=== PATIENT | female | born 1940 | race Caucasian/White ===

== ENCOUNTER 2020-07-10 13:01 | Emergency (ER) | payer MEDICARE, BC ==
[~2020-07-10] VITALS: Ht 167.6 cm; Wt 68.0 kg
[~2020-07-10 13:01] MED LIST: ADVIL100 M2 PO; ASPIR 8181 M1 PO; ATORVASTATIN CA20 MG PO; AUGMENTIN 875875 MG PO; CEFDINIR300 MG; CIPRO500 MG PO; LIPITOR10 MG PO; MACROBID 100 M100 M2 PO; MELATONIN3 MG PO; METOPROLOL SUCC50 MG PO; RYTHMOL 150MG150 M1 PO; SEROQUEL 25 MG25 M1 PO; SEROQUEL 50 MG50 MG PO; TOPROL XL25 MG PO; VITAMIN B-12500 MCG PO; XARELTO20 MG PO; ZOFRAN ODT4 MG PO
[2020-07-10 13:39] LABS: ABSOLUTE BASOPHILS 0.1 thou/uL (0.0-0.2); ABSOLUTE EOSINOPHILS 0.1 thou/uL (0.0-0.7); ABSOLUTE LYMPHOCYTES 1.3 thou/uL (0.8-5.3); ABSOLUTE MONOCYTES 0.7 thou/uL (0.0-1.2); ABSOLUTE NEUTROPHILS 5.4 thou/uL (1.6-8.1); BASOPHILS 0.8 %; HEMATOCRIT 35.8 % (37.0-47.0); HEMOGLOBIN 11.9 gm/dL (12.0-15.0); LYMPHOCYTES 17.2 %; MCH 30.4 pg (26.0-34.0); MCHC 33.2 g/dL (28.0-37.0); MCV 91.8 fL (80.0-100.0); MPV 9.2 fl. (7.2-11.1); NUCLEATED RBCS 0 /100WBC; PLATELET COUNT* 219 thou/uL (150-400); RBC 3.91 mil/uL (4.20-5.00); RDW-CV 14.5 % (10.5-14.5); WBC 7.5 thou/uL (4.0-11.0)
[2020-07-10 13:53] LABS: APTT 37.9 Seconds (25.0-31.3); INR 1.2; PROTIME 12.9 Seconds (9.20-11.50)
[2020-07-10] MEDS ORDERED: AMOXICILLIN 50500 MG PO (14:25)
[2020-07-10] MEDS ORDERED: ZOFRAN ODT4 MG PO (14:29)
[2020-07-10 14:41] VITALS: BP 154/77
== END 2020-07-10 14:42 | disposition home or self-care (01) ==
LOC: M.ERS 13:01
PROVIDERS: Nurse Practitioner Family
DX: J98.8 Other specified respiratory disorders (principal); R04.0 Epistaxis; Z20.822 Contact with and (suspected) exposure to COVID-19; I10 Essential (primary) hypertension; G89.29 Other chronic pain; E78.5 Hyperlipidemia, unspecified; Z88.2 Allergy status to sulfonamides; Z90.710 Acquired absence of both cervix and uterus; Z87.440 Personal history of urinary (tract) infections; Z86.73 Personal history of transient ischemic attack (TIA), and cerebral infarction without residual deficits

== ENCOUNTER → 2020-10-05 | Outpatient (CLI) | payer MEDICARE, BC ==
[~2020-10-05] MED LIST changes: +AMOXICILLIN 50500 MG PO
--- NOTE | 2020-10-06 09:17 | NUR ---
I have reviewed the documentation by HECTOR THOMPSON from 10/05/20 to 10/06/20 and I concur with it. TERI SKAGGS
== END ==
LOC: M.RAD 10:49
PROVIDERS: ATTEND Internal Medicine Critical Care Medicine
DX: E87.79 Other fluid overload (principal); R91.8 Other nonspecific abnormal finding of lung field; R06.02 Shortness of breath; R05 Cough

== ENCOUNTER → 2020-10-11 | Outpatient (CLI) | payer MEDICARE, BC ==
--- NOTE | 2020-10-11 15:09 | 2DMMODE ---
[place] [address] 2 D/M-MODE ECHOCARDIOGRAM Name: ASUNCION FERNANDES Room: [facility]#: [id number] Admission: 10/11/20 Attend Phys: Christophe Mckeon MD Discharge: Date of : 38 Date of Service: 10/11/20 1508 Report #: [id number] THIS REPORT FOR: cc: Taya Parrish Maggie M. DO Blick, David R. MD [facility] ~ APPROVED REPORT Study performed: 10/11/2020 13:24:25 EXAM: Comprehensive 2D, Doppler, and color-flow Echocardiogram Patient Location: Out-Patient BSA: 1.77 HR: 87 bpm BP: 132/82 mmHg Other Information Study Quality: Excellent Indications Dyspnea 2D Dimensions IVSd: 7.78 (7-11mm) LVOT Diam: 18.37 (18-24mm) LVDd: 30.57 mm PWd: 8.57 (7-11mm) Ascending Ao: 28.09 (22-36mm) LVDs: 24.65 (25-40mm) Aortic Root: 27.00 mm Volumes Left Atrial Volume (Systole) LA ESV Index: 23.50 mL/m2 Aortic Valve AoV Peak Flakito.: 0.75 m/s AO Peak Gr.: 2.22 mmHg LVOT Max P.77 mmHg AO Mean Gr.: 1.15 mmHg LVOT Mean P.86 mmHg LVOT Max V: 0.66 m/s AO V2 VTI: 10.77 cm LVOT Mean V: 0.43 m/s PRANEETH (VTI): 3.03 cm2 LVOT V1 VTI: 12.32 cm Mitral Valve MV Decel. Time: 175.57 [place] [address] 2 D/M-MODE ECHOCARDIOGRAM Name: ASUNCION FERNANDES Room: [facility]#: [id number] Admission: 10/11/20 Attend Phys: Christophe Mckeon MD Discharge: Date of : 38 Date of Service: 10/11/20 1508 Report #: [id number] MV E Max Flakito.: 0.27 m/s MV PHT: 50.91 ms MVA (PHT): 4.32 cm2 TDI E/Lateral E': 1.69 E/Medial E': 1.80 Medial E' Flakito.: 0.15 m/s Lateral E' Flakito.: 0.16 m/s Pulmonary Valve PV Peak Flakito.: 0.73 m/s PV Peak Gr.: 2.15 mmHg Tricuspid Valve RAP Estimate: 5.00 mmHg TR Peak Gr.: 28.48 mmHg RVSP: 33.48 mmHg PA Pressure: 33.48 mmHg Left Ventricle The left ventricle is normal size. There is normal LV segmental wall motion. There is normal left ventricular wall thickness. Left ventricular systolic function is normal. The left ventricular ejection fraction is within the normal range. LVEF is 60-65%. This study is not technically sufficient to allow evaluation of the LV diastolic function. Right Ventricle The right ventricle is normal size. The right ventricular systolic function is normal. Atria Left atrium is borderline dilated. Right atrium is mildly dilated. Aortic Valve The Aortic valve is sclerotic. No aortic regurgitation is present. There is no aortic valvular stenosis. Mitral Valve The mitral valve is normal in structure. Mild mitral regurgitation. No evidence of mitral valve stenosis. Tricuspid Valve The tricuspid valve is normal in structure. Mild tricuspid regurgitation. estimated pa pressure 45 [place] [address] 2 D/M-MODE ECHOCARDIOGRAM Name: ASUNCION FERANNDES Room: [facility]#: [id number] Admission: 10/11/20 Attend Phys: Christophe Mckeon MD Discharge: Date of : 38 Date of Service: 10/11/20 1508 Report #: [id number] The pulmonary valve is normal in structure. There is no pulmonic valvular regurgitation. Great Vessels The aortic root is normal in size. IVC is normal in size and collapses >50% with inspiration. Pericardium There is no pericardial effusion. <Conclusion> LVEF is 60-65%. Left atrium is borderline dilated. Right atrium is mildly dilated. The Aortic valve is sclerotic. Mild mitral regurgitation. Mild tricuspid regurgitation. estimated pa pressure 45 mm Hg <ELECTRONICALLY SIGNED> By: Yair Fernandez MD, [facility] 10/11/20 1508 [id number] Yair Fernandez MD, [facility] /INF
== END ==
LOC: M.CT 09-26 11:53
PROVIDERS: ATTEND Internal Medicine Critical Care Medicine
DX: I08.1 Rheumatic disorders of both mitral and tricuspid valves (principal); R91.1 Solitary pulmonary nodule; R05 Cough; R91.8 Other nonspecific abnormal finding of lung field; E87.79 Other fluid overload; R06.02 Shortness of breath; R55 Syncope and collapse

== ENCOUNTER → 2020-10-30 | Outpatient (CLI) | payer MEDICARE, BC | LOC: M.ULTRA 13:37 | PROVIDERS: ATTEND Family Medicine | DX: N28.1 Cyst of kidney, acquired (principal); N28.89 Other specified disorders of kidney and ureter ==

== ENCOUNTER → 2020-11-27 | Outpatient (CLI) | payer MEDICARE, BC ==
[2020-11-27 13:00] LABS: ABSOLUTE BASOPHILS 0.1 thou/uL (0.0-0.2); ABSOLUTE EOSINOPHILS 0.1 thou/uL (0.0-0.7); ABSOLUTE LYMPHOCYTES 1.5 thou/uL (0.8-5.3); ABSOLUTE MONOCYTES 0.6 thou/uL (0.0-1.2); ABSOLUTE NEUTROPHILS 3.1 thou/uL (1.6-8.1); EOSINOPHILS 2.3 %; HEMATOCRIT 39.8 % (37.0-47.0); HEMOGLOBIN 12.6 gm/dL (12.0-15.0); LYMPHOCYTES 28.7 %; MCHC 31.8 g/dL (28.0-37.0); MCV 85.1 fL (80.0-100.0); MPV 8.8 fl. (7.2-11.1); NUCLEATED RBCS 0 /100WBC; PLATELET COUNT* 192 thou/uL (150-400); RBC 4.67 mil/uL (4.20-5.00); RDW-CV 16.3 % (10.5-14.5); WBC 5.4 thou/uL (4.0-11.0)
[2020-11-27 13:11] LABS: ALBUMIN 3.4 g/dL (3.4-5.0); CALCIUM 9.2 mg/dL (8.5-10.1); CREATININE 1.6 mg/dL (0.6-1.3); TOTAL BILIRUBIN 0.7 mg/dL (<0.1-1.0); TOTAL PROTEIN 7.1 g/dL (6.4-8.2)
== END ==
LOC: M.LAB 12:39 → M.CT 14:00
PROVIDERS: ATTEND Urology
DX: K57.30 Diverticulosis of large intestine without perforation or abscess without bleeding (principal); N28.89 Other specified disorders of kidney and ureter; M47.816 Spondylosis without myelopathy or radiculopathy, lumbar region

== ENCOUNTER → 2020-12-05 | Outpatient (CLI) | payer MEDICARE, BC ==
--- NOTE | 2020-12-29 17:58 | NPO ---
[address] [address] Nocturnal Pulse Oximetry Name: ASUNCION FERNANDES Room: [facility]#: [id number] Admission: 12/05/20 Attend Phys: Christophe Mckeon MD Discharge: Date of : 38 Report #: [id number] THIS REPORT FOR: cc: Taya Parrish Maggie M. DO Pervez, Adeel MD ~ DATE OF STUDY: 12/06/2020 STUDY: Nocturnal pulse oximetry. Nocturnal pulse ox continuous recording was performed, which indicates that the patient's nocturnal pulse oximetry was at or below 89% for 56 minutes, out of which 30 minutes were spent at an O2 saturation at or below 88%. The patient, therefore, qualifies for oxygen under Medicare guidelines. <ELECTRONICALLY SIGNED> By: Christophe Mckeon MD 12/29/20 1758 21 Atico Mckeon MD /nt
== END ==
LOC: M.PUL 13:47
PROVIDERS: ATTEND Internal Medicine Critical Care Medicine
DX: J45.30 Mild persistent asthma, uncomplicated (principal)